=== PATIENT | male | born 1985 | race Caucasian/White ===

== ENCOUNTER 2021-10-18 16:23 | Emergency (ER) | payer OTHER ==
[2021-10-18] MEDS ORDERED: BENADRYL ALLERG25 MG PO (18:24)
[2021-10-18] MEDS ORDERED: MEDROL DOSEPAK 24 MG PO (18:24)
== END 2021-10-18 18:35 | disposition home or self-care (01) ==
LOC: ER1 16:23
DX: L25.9 Unspecified contact dermatitis, unspecified cause (principal); F17.210 Nicotine dependence, cigarettes, uncomplicated
CPT/HCPCS: 96372; 99282; J1100